=== PATIENT | female | born 1985 | race Caucasian/White ===

== ENCOUNTER 2016-10-14 11:45 | Emergency (ER) | payer OTHER ==
[~2016-10-14] VITALS: Ht 170.2 cm; Wt 89.3 kg
[~2016-10-14 11:45] MED LIST: ALBUTEROL SULF8.5 GM IH; BACTERICIN30 GM TP; BACTRIM,SEPT1 TABLET PO; CLEOCIN300 MG PO; CLOMID50 MG PO; COSOPT 0.5200 DROP/1; COSOPT EYE DROPS5 ML BOTH EYES; DOXYCYCLINE HY100 MG PO; FLEXERIL10 MG PO; FLONASE16 G1 BOTH NARES; GRALISE600 MG PO; GUIATUSS100 MG/5 M PO; HYCODAN SYRUP480 ML PO; INDOCIN50 MG PO; KEFLEX500 MG PO; METFORMIN HCL500 MG PO; MIGRAINE MED; MOBIC7.5 MG PO; MOTRIN600 MG PO; MOTRIN800 MG PO; NORCO 7.5/321 TABLET PO; PERCOCET 5/31 TABLET PO; PILOCARPINE LEFT EYE; PREDNISONE10 M1 PO; PREDNISONE20 MG PO; PROVERA,CYCRIN10 MG PO; PROVERA,CYCRIN5 MG PO; TESSALON200 MG PO; TIMOLOL LEFT EYE
[2016-10-14 12:32] LABS: HEMATOCRIT 41.6 % (36.0-46.0); MCH 28.8 PG (29.0-34.0); MCHC 32.9 G/DL (30.0-36.0); MCV 87.4 FL (83-99); MEAN PLAT.VOLUME 9.6 uM^3 (9.5-12.4); PLATELET COUNT 330 K/uL (156-360); RBC DIS.WIDTH-CV 12.4 % (11.8-14.6); RED BLOOD COUNT 4.76 M/uL (3.80-5.20); WHITE BLOOD COUNT 7.8 K/uL (4.1-10.2)
[2016-10-14 12:44] LABS: CHLORIDE 108 mEq/L (99-109)
[2016-10-14 12:45] LABS: SODIUM 143 mEq/L (136-147)
[2016-10-14 12:46] LABS: GLUCOSE 83 mg/dL (70-99)
[2016-10-14 12:48] LABS: ANION GAP 14 MEQ/L (2-14)
[2016-10-14 12:50] LABS: GFR ESTIMATE (CALCULATED) > 59 mL/min/
[2016-10-14 12:51] LABS: UREA NITROGEN (BUN) 9 mg/dL (9-23)
[2016-10-14 15:38] LABS: CARBOXY HGB 3.9 % (0-5); METHEMOGLOBIN 0.8 % (0-1.5)
[2016-10-14 15:39] LABS: HEMOGLOBIN 14.2 (11.9-15.5); MIXED VENOUS O2 SATURATION 67.1 % (65-75)
[2016-10-14] MEDS ORDERED: VENTOLIN HFA18 GM IH (15:53)
[2016-10-14] MEDS ORDERED: NAPROXEN500 MG PO (15:54)
[2016-10-14 16:39] VITALS: BP 128/73
== END 2016-10-14 16:40 | disposition home or self-care (01) ==
LOC: EME 11:45 → RME 11:45
PROVIDERS: Physician Assistant Medical
DX: J70.5 Respiratory conditions due to smoke inhalation (principal); T59.811A Toxic effect of smoke, accidental (unintentional), initial encounter; X02.1XXA Exposure to smoke in controlled fire in building or structure, initial encounter; J45.909 Unspecified asthma, uncomplicated; E11.9 Type 2 diabetes mellitus without complications; Z79.84 Long term (current) use of oral hypoglycemic drugs; F17.200 Nicotine dependence, unspecified, uncomplicated
CPT/HCPCS: 71020; 80048; 82810; 85027; 99281; 99284